=== PATIENT | female | born 1955 | race African-American/Black ===

== ENCOUNTER → 2016-08-21 | Outpatient (CLI) | payer OTHER, MEDICAID ==
[~2016-08-21] MED LIST: ALPR0.5T96 PO; ASPI-1159 PO; ATEN50TA PO; CYCL10TA7; DIPH25CA83 PO; FURO-151 PO; GABA-531 PO; GLIP1TAB5; LOSA50TA20 PO; OMEG1CAP17 PO; SIMV10TA6 PO; ZOLP10TA2 PO
[2016-08-21 12:07] LABS: BASOPHILS % 0.8 % (0.0-2.0); EOSINOPHILS % 8.2 % (0.0-5.0); HEMATOCRIT. 37.1 % (36.0-48.0); HEMOGLOBIN. 12.5 g/dL (12.0-16.0); LYMPHOCYTES % 24.5 % (20.0-50.0); MEAN CORPUSCULAR HEMOGLOBIN 28.4 pg (28.0-32.0); MEAN CORPUSCULAR VOLUME 84.7 fL (81.0-99.0); MEAN PLATELET VOLUME 9.5 fl (7.4-10.4); MONOCYTES % 7.6 % (2.0-8.0); NEUTROPHILS % 58.9 % (40.0-76.0); PLATELET 175 x1000/uL (130-400); RED BLOOD CELL COUNT 4.38 mill/uL (4.2-5.4); RED CELL DISTRIBUTION WIDTH 12.9 % (11.6-14.6)
[2016-08-21 12:18] LABS: INR 1.3; PROTHROMBIN TIME 13.2 sec
[2016-08-21 12:27] LABS: CARBON DIOXIDE 29 mEq/L (21-32); CHLORIDE 101 mEq/L (98-107); HAPTOGLOBIN 341 mg/dL (30-200); TOTAL IRON BINDING CAPACITY 234 ug/dL (250-450)
[2016-08-21 12:37] LABS: FERRITIN 237 ng/mL (10-291)
[2016-08-21 12:49] LABS: HEPATITIS B SURFACE ANTIGEN NEGATIVE
[2016-08-21 13:16] LABS: HEPATITIS B CORE AB IGM NEGATIVE
[2016-08-21 13:18] LABS: HEPATITIS A AB IGM NEGATIVE (NEGATIVE)
[2016-08-22 09:06] LABS: IMMUNOGLOBULIN A 384 mg/dL (87-352); IMMUNOGLOBULIN G 1485 mg/dL (700-1600); IMMUNOGLOBULIN M 469 mg/dL (26-217)
[2016-08-22 10:06] LABS: BETA-2 MICROGLOBULIN SERUM 1.8 mg/L (0.6-2.4)
[2016-08-22 13:07] LABS: CA 27.29 236.4 U/mL (0.0-38.6)
[2016-08-22 16:21] LABS: FOLIC ACID (FOLATE) SERUM > 20.00 ng/mL (>5.38); VITAMIN B12 SERUM 1700 pg/mL (211-911)
[2016-08-23 06:21] LABS: CA 19-9 57970 U/mL (0-35); CANCER ANTIGEN 125 444.7 U/mL (0.0-38.1)
== END | disposition home or self-care (01) ==
LOC: LAB 11:22
PROVIDERS: ATTEND Internal Medicine Hematology & Oncology
DX: R16.0 Hepatomegaly, not elsewhere classified (principal); K86.89 Other specified diseases of pancreas; R79.89 Other specified abnormal findings of blood chemistry
CPT/HCPCS: 36415; 80053; 82232; 82270; 82378; 82607; 82728; 82746; 82784; 83010; 83540; 83550; 83615; 84439; 84443; 84481; 85025; 85044; 85610; 85730; 86300; 86301; 86304; 86705; 86709; 86803; 87186; 87340

== ENCOUNTER 2016-11-15 13:50 | Inpatient (IN) | payer OTHER, MEDICAID ==
[~2016-11-15] VITALS: Ht 154.9 cm; Wt 63.5 kg
[~2016-11-15 13:50] MED LIST changes: +ALPR1TAB2 PO; +ATEN-42 PO; +METF500T4 PO; +POTA10CA42 PO
[2016-11-15] MEDS ORDERED: SODIUM CHLORIDE 0.9% 1,000 ML IV ONE (14:17)
[2016-11-15] MEDS ORDERED: ONDANSETRON HCL 4MG/2ML VIAL IV ONE (14:45)
[2016-11-15 15:12] LABS: BASOPHILS % 0.3 % (0.0-2.0); EOSINOPHILS % 0.3 % (0.0-5.0); HEMATOCRIT. 23.6 % (36.0-48.0); HEMOGLOBIN. 7.9 g/dL (12.0-16.0); LYMPHOCYTES % 14.8 % (20.0-50.0); MEAN CORPUSCULAR VOLUME 86.2 fL (81.0-99.0); MONOCYTES % 12.1 % (2.0-8.0); NEUTROPHILS % 72.5 % (40.0-76.0); PLATELET 165 x1000/uL (130-400); RED BLOOD CELL COUNT 2.73 mill/uL (4.2-5.4); RED CELL DISTRIBUTION WIDTH 17.7 % (11.6-14.6)
[2016-11-15 15:17] LABS: CARBON DIOXIDE 25 mEq/L (21-32); CHLORIDE 102 mEq/L (98-107); INR 1.3; PARTIAL THROMBOPLASTIN TIME 37.7 sec (24.0-34.0); PROTHROMBIN TIME 13.9 sec
[2016-11-15 15:25] LABS: TROPONIN I < 0.02 ng/mL (0.00-0.04)
[2016-11-15 23:05] VITALS: BP 97/60
[2016-11-15] MEDS ORDERED: ZOLP10TA2 PO (23:44)
[2016-11-15] MEDS ORDERED: LOV40 SQ (23:44)
[2016-11-15] MEDS ORDERED: OMEG1CAP17 PO (23:44)
[2016-11-15] MEDS ORDERED: LOSA50TA20 PO (23:44)
[2016-11-15] MEDS ORDERED: GLIP2.5T3 PO (23:44)
[2016-11-15] MEDS ORDERED: ASPI-1159 PO (23:44)
[2016-11-16] VITALS (15 sets, daily range): BP systolic 86–155; BP diastolic 50–98
[2016-11-16] MEDS ORDERED: ONDANSETRON HCL 4MG/2ML VIAL IV PRN (00:45)
[2016-11-16] MEDS ORDERED: ZOLPIDEM TARTRATE 5MG TABLET PO PRN (00:45)
[2016-11-16] MEDS: SODIUM CHLORIDE 0.45% 1,000 ML IV SCH ×2 (01:06→16:01)
[2016-11-16] MEDS: BLOOD SUGAR DIAGNOSTIC STRIP TEST SCH ×4 (06:00→20:43)
[2016-11-16 06:45] LABS: CARBON DIOXIDE 23 mEq/L (21-32); CHLORIDE 107 mEq/L (98-107)
[2016-11-16 07:07] LABS: HEMATOCRIT. 22.8 % (36.0-48.0); HEMOGLOBIN. 7.6 g/dL (12.0-16.0); MEAN CORPUSCULAR HEMOGLOBIN 28.7 pg (28.0-32.0); MEAN CORPUSCULAR VOLUME 86.1 fL (81.0-99.0); MEAN PLATELET VOLUME 8.9 fl (7.4-10.4); PLATELET 183 x1000/uL (130-400); RED BLOOD CELL COUNT 2.65 mill/uL (4.2-5.4)
[2016-11-16] MEDS: INSULIN LISPRO 100 UNITS/ML SUBCUT SCH ×4 (07:44→20:43)
[2016-11-16] MEDS: ATENOLOL 50 MG TABLET PO SCH (08:20)
[2016-11-16] MEDS: PANTOPRAZOLE SODIUM 40 MG/VIAL IV SCH (08:44)
[2016-11-16] MEDS: FISH OIL/OMEGA-3 FATTY ACIDS 1000MG CAPSULE PO SCH (08:44)
[2016-11-16] MEDS: ALPRAZOLAM 0.25 MG TABLET PO PRN (08:47)
[2016-11-16] MEDS ORDERED: ENOXAPARIN 40MG/0.4ML SYR SUBCUT SCH (09:00)
[2016-11-16] MEDS ORDERED: ENOXAPARIN 30MG/0.3ML SYR SUBCUT SCH (09:00)
[2016-11-16] MEDS ORDERED: ASPIRIN 81MG EC TABLET PO SCH (09:00)
[2016-11-16] MEDS ORDERED: OMEGA ACID ETHYL ESTERS PO SCH (09:00)
[2016-11-16 13:30] LABS: PLATELET ESTIMATE NORMAL
[2016-11-16 18:45] LABS: VITAMIN B12 SERUM > 2000 pg/mL (211-911)
[2016-11-16 18:48] LABS: FERRITIN 1953 ng/mL (10-291)
[2016-11-17] VITALS (8 sets, daily range): BP systolic 95–165; BP diastolic 66–112
[2016-11-17] MEDS: BLOOD SUGAR DIAGNOSTIC STRIP TEST SCH ×4 (06:38→20:09)
[2016-11-17] MEDS: INSULIN LISPRO 100 UNITS/ML SUBCUT SCH ×4 (08:10→20:09)
[2016-11-17] MEDS: FISH OIL/OMEGA-3 FATTY ACIDS 1000MG CAPSULE PO SCH (08:53)
[2016-11-17] MEDS: PANTOPRAZOLE SODIUM 40 MG/VIAL IV SCH (08:53)
[2016-11-17] MEDS: ATENOLOL 50 MG TABLET PO SCH ×2 (09:00→14:59)
[2016-11-17] MEDS: ACETAMINOPHEN 325MG TABLET PO PRN ×2 (09:02→19:33)
[2016-11-17 10:16] LABS: HEMOGLOBIN. 10.2 g/dL (12.0-16.0); MEAN CORPUSCULAR HEMOGLOBIN 29.4 pg (28.0-32.0); MEAN CORPUSCULAR VOLUME 86.6 fL (81.0-99.0); MEAN PLATELET VOLUME 8.8 fl (7.4-10.4); PLATELET 225 x1000/uL (130-400); RED BLOOD CELL COUNT 3.47 mill/uL (4.2-5.4); RED CELL DISTRIBUTION WIDTH 17.9 % (11.6-14.6)
[2016-11-17 10:32] LABS: CARBON DIOXIDE 24 mEq/L (21-32); CHLORIDE 109 mEq/L (98-107)
[2016-11-17 11:09] LABS: NUCLEATED RED BLOOD CELLS 1 /100 WBC; PLATELET ESTIMATE NORMAL
[2016-11-17] MEDS: SODIUM CHLORIDE 0.45% 1,000 ML IV SCH (15:00)
[2016-11-17] MEDS ORDERED: POTASSIUM CHLORIDE 20MEQ TABLET SR PO NR (19:39)
[2016-11-17] MEDS ORDERED: VANCOMYCIN 1500MG in DEXTROSE 5% WATER 250ML IV NR (22:00)
[2016-11-18] VITALS (8 sets, daily range): BP systolic 84–111; BP diastolic 45–78
[2016-11-18] MEDS: PIPERACILLIN/TAZ 3.375G PREMIX 50 ML IV SCH ×5 (00:19→23:19)
[2016-11-18] MEDS: MORPHINE SULFATE 4 MG/ML CPJ (NOT FOR IM USE) IV PRN (05:16)
[2016-11-18] MEDS ORDERED: MORPHINE SULFATE 4 MG/ML CPJ (NOT FOR IM USE) IV NR (06:30)
[2016-11-18] MEDS: INSULIN LISPRO 100 UNITS/ML SUBCUT SCH ×4 (08:10→21:11)
[2016-11-18] MEDS: BLOOD SUGAR DIAGNOSTIC STRIP TEST SCH ×4 (08:12→20:25)
[2016-11-18] MEDS: ATENOLOL 50 MG TABLET PO SCH (08:59)
[2016-11-18] MEDS: FISH OIL/OMEGA-3 FATTY ACIDS 1000MG CAPSULE PO SCH (08:59)
[2016-11-18] MEDS: SODIUM CHLORIDE 0.45% 1,000 ML IV SCH ×2 (08:59→23:19)
[2016-11-18] MEDS ORDERED: FAMOTIDINE 20MG TABLET PO SCH (09:00)
[2016-11-18] MEDS: VANCOMYCIN 1 G PREMIX 200 ML IV SCH ×2 (10:16→21:11)
[2016-11-18] MEDS: ALPRAZOLAM 0.25 MG TABLET PO PRN (10:40)
[2016-11-18 10:41] LABS: HEMATOCRIT. 35.4 % (36.0-48.0); MEAN CORPUSCULAR HEMOGLOBIN 29.2 pg (28.0-32.0); MEAN CORPUSCULAR VOLUME 86.4 fL (81.0-99.0); MEAN PLATELET VOLUME 8.6 fl (7.4-10.4); PLATELET 272 x1000/uL (130-400); RED CELL DISTRIBUTION WIDTH 18.7 % (11.6-14.6)
[2016-11-18 10:56] LABS: CARBON DIOXIDE 21 mEq/L (21-32); CHLORIDE 111 mEq/L (98-107)
[2016-11-18 11:40] LABS: ATYPICAL LYMPHOCYTES 1; NUCLEATED RED BLOOD CELLS 3 /100 WBC; PLATELET ESTIMATE NORMAL
[2016-11-18 15:56] LABS: HEMATOCRIT. 34.6 % (36.0-48.0); HEMOGLOBIN. 11.6 g/dL (12.0-16.0); MEAN CORPUSCULAR HEMOGLOBIN 29.1 pg (28.0-32.0); MEAN CORPUSCULAR VOLUME 86.8 fL (81.0-99.0); MEAN PLATELET VOLUME 8.4 fl (7.4-10.4); PLATELET 309 x1000/uL (130-400); RED BLOOD CELL COUNT 3.98 mill/uL (4.2-5.4); RED CELL DISTRIBUTION WIDTH 19.4 % (11.6-14.6)
[2016-11-18 16:02] LABS: CHLORIDE 108 mEq/L (98-107)
[2016-11-18 16:03] LABS: INR 1.9; PROTHROMBIN TIME 19.2 sec
[2016-11-18 16:04] LABS: CARBON DIOXIDE 20 mEq/L (21-32)
[2016-11-18] MEDS ORDERED: SODIUM CHLORIDE 0.9% 500 ML IV NR (16:30)
[2016-11-18] MEDS: PANTOPRAZOLE SODIUM 40 MG/VIAL IV SCH (16:40)
[2016-11-18 20:48] LABS: NUCLEATED RED BLOOD CELLS 1 /100 WBC; PLATELET ESTIMATE NORMAL
[2016-11-19] VITALS (7 sets, daily range): BP systolic 84–106; BP diastolic 51–70
[2016-11-19 00:04] LABS: HEMATOCRIT 32.8 % (36.0-48.0); HEMOGLOBIN 10.9 g/dL (12.0-16.0)
[2016-11-19] MEDS: PIPERACILLIN/TAZ 3.375G PREMIX 50 ML IV SCH ×4 (05:09→23:10)
[2016-11-19 05:23] LABS: BASOPHILS % 0.4 % (0.0-2.0); EOSINOPHILS % 1.7 % (0.0-5.0); HEMOGLOBIN. 10.4 g/dL (12.0-16.0); LYMPHOCYTES % 7.9 % (20.0-50.0); MEAN CORPUSCULAR HEMOGLOBIN 28.9 pg (28.0-32.0); MEAN CORPUSCULAR VOLUME 86.7 fL (81.0-99.0); MEAN PLATELET VOLUME 9.1 fl (7.4-10.4); MONOCYTES % 11.7 % (2.0-8.0); NEUTROPHILS % 78.3 % (40.0-76.0); PLATELET 301 x1000/uL (130-400); RED BLOOD CELL COUNT 3.58 mill/uL (4.2-5.4)
[2016-11-19 05:57] LABS: CARBON DIOXIDE 19 mEq/L (21-32); CHLORIDE 108 mEq/L (98-107)
[2016-11-19] MEDS: MORPHINE SULFATE 4 MG/ML CPJ (NOT FOR IM USE) IV PRN (06:27)
[2016-11-19] MEDS: BLOOD SUGAR DIAGNOSTIC STRIP TEST SCH ×4 (07:25→21:28)
[2016-11-19] MEDS: INSULIN LISPRO 100 UNITS/ML SUBCUT SCH ×4 (07:25→21:00)
[2016-11-19] MEDS: ATENOLOL 50 MG TABLET PO SCH (07:43)
[2016-11-19] MEDS: FISH OIL/OMEGA-3 FATTY ACIDS 1000MG CAPSULE PO SCH (08:32)
[2016-11-19] MEDS: PANTOPRAZOLE SODIUM 40 MG/VIAL IV SCH (08:32)
[2016-11-19] MEDS ORDERED: SODIUM CHLORIDE 0.9% 500 ML IV ONE (09:00)
[2016-11-19 09:45] LABS: HEMATOCRIT 29.6 % (36.0-48.0); HEMOGLOBIN 9.8 g/dL (12.0-16.0)
[2016-11-19] MEDS: VANCOMYCIN 1 G PREMIX 200 ML IV SCH ×2 (09:46→21:12)
[2016-11-19] MEDS: ALPRAZOLAM 0.25 MG TABLET PO PRN ×2 (11:39→23:10)
[2016-11-19] MEDS: SODIUM CHLORIDE 0.45% 1,000 ML IV SCH (17:20)
[2016-11-19] MEDS: MIRTAZAPINE 15MG TABLET PO SCH (21:12)
[2016-11-20] VITALS (12 sets, daily range): BP systolic 105–152; BP diastolic 73–110
[2016-11-20] MEDS: PIPERACILLIN/TAZ 3.375G PREMIX 50 ML IV SCH ×3 (05:09→18:32)
[2016-11-20] MEDS: BLOOD SUGAR DIAGNOSTIC STRIP TEST SCH ×4 (07:40→21:35)
[2016-11-20] MEDS: INSULIN LISPRO 100 UNITS/ML SUBCUT SCH ×4 (08:10→21:00)
[2016-11-20] MEDS: ATENOLOL 50 MG TABLET PO SCH (09:00)
[2016-11-20 09:46] LABS: INR 1.6; PROTHROMBIN TIME 16.3 sec
[2016-11-20] MEDS: VANCOMYCIN 1 G PREMIX 200 ML IV SCH (10:01)
[2016-11-20] MEDS ORDERED: DIPHENHYDRAMINE 50MG/ML VIAL ONE (10:06)
[2016-11-20] MEDS ORDERED: FENTANYL CITRATE/PF 50MCG/ML 2ML VIAL ONE (10:06)
[2016-11-20] MEDS ORDERED: LIDOCAINE HCL 1% 20ML VIAL (Pyxis) INJ ONE (10:06)
[2016-11-20] MEDS ORDERED: MIDAZOLAM HCL 2 MG/2 ML VIAL ONE (10:06)
[2016-11-20] MEDS ORDERED: SODIUM BICARBONATE 4% (2.4MEQ) 5ML VIAL IV ONE (10:07)
[2016-11-20] MEDS ORDERED: IOHEXOL-300 50 ML BOTTLE IV ONE (10:23)
[2016-11-20] MEDS ORDERED: FENTANYL CITRATE/PF 50MCG/ML 2ML VIAL IV ONE (11:00)
[2016-11-20] MEDS ORDERED: DIPHENHYDRAMINE 50MG/ML VIAL IV ONE (11:00)
[2016-11-20] MEDS ORDERED: SODIUM CHLORIDE 0.9% 10ML VIAL ONE (13:19)
[2016-11-20] MEDS: PANTOPRAZOLE SODIUM 40 MG/VIAL IV SCH (13:21)
[2016-11-20] MEDS: MORPHINE SULFATE 4 MG/ML CPJ (NOT FOR IM USE) IV PRN (13:21)
[2016-11-20] MEDS: FISH OIL/OMEGA-3 FATTY ACIDS 1000MG CAPSULE PO SCH (13:22)
[2016-11-20] MEDS: SODIUM CHLORIDE 0.45% 1,000 ML IV SCH (13:48)
[2016-11-20] MEDS: DEXTROSE 50% WATER 50ML SYRINGE IV PRN (17:33)
[2016-11-20] MEDS: MIRTAZAPINE 15MG TABLET PO SCH (21:34)
[2016-11-21] VITALS (7 sets, daily range): BP systolic 105–135; BP diastolic 65–98
[2016-11-21] MEDS: PIPERACILLIN/TAZ 3.375G PREMIX 50 ML IV SCH ×5 (00:08→23:29)
[2016-11-21] MEDS: SODIUM CHLORIDE 0.45% 1,000 ML IV SCH ×3 (01:00→18:00)
[2016-11-21 05:22] LABS: BASOPHILS % 0.5 % (0.0-2.0); EOSINOPHILS % 2.7 % (0.0-5.0); HEMATOCRIT. 25.8 % (36.0-48.0); HEMOGLOBIN. 8.5 g/dL (12.0-16.0); LYMPHOCYTES % 11.5 % (20.0-50.0); MEAN CORPUSCULAR HEMOGLOBIN 28.8 pg (28.0-32.0); MEAN CORPUSCULAR VOLUME 87.6 fL (81.0-99.0); MEAN PLATELET VOLUME 8.7 fl (7.4-10.4); MONOCYTES % 11.9 % (2.0-8.0); NEUTROPHILS % 73.4 % (40.0-76.0); PLATELET 286 x1000/uL (130-400); RED BLOOD CELL COUNT 2.94 mill/uL (4.2-5.4); RED CELL DISTRIBUTION WIDTH 19.6 % (11.6-14.6)
[2016-11-21 05:42] LABS: CARBON DIOXIDE 23 mEq/L (21-32); CHLORIDE 112 mEq/L (98-107)
[2016-11-21] MEDS ORDERED: POTASSIUM CHLORIDE 20MEQ TABLET SR PO SCH (06:30)
[2016-11-21] MEDS: BLOOD SUGAR DIAGNOSTIC STRIP TEST SCH ×4 (06:45→20:23)
[2016-11-21] MEDS: PANTOPRAZOLE SODIUM 40 MG/VIAL IV SCH (08:01)
[2016-11-21] MEDS: FISH OIL/OMEGA-3 FATTY ACIDS 1000MG CAPSULE PO SCH (08:01)
[2016-11-21] MEDS: ATENOLOL 50 MG TABLET PO SCH (08:02)
[2016-11-21] MEDS: INSULIN LISPRO 100 UNITS/ML SUBCUT SCH ×4 (08:08→20:23)
[2016-11-21] MEDS: MIRTAZAPINE 15MG TABLET PO SCH (20:25)
[2016-11-22] MEDS: MORPHINE SULFATE 4 MG/ML CPJ (NOT FOR IM USE) IV PRN ×3 (00:33→19:45)
[2016-11-22 02:07] VITALS: BP 118/88
[2016-11-22 03:29] LABS: EOSINOPHILS % 2.4 % (0.0-5.0); HEMATOCRIT. 32.7 % (36.0-48.0); LYMPHOCYTES % 14.1 % (20.0-50.0); MEAN CORPUSCULAR HEMOGLOBIN 29.4 pg (28.0-32.0); MEAN CORPUSCULAR VOLUME 87.5 fL (81.0-99.0); MEAN PLATELET VOLUME 8.7 fl (7.4-10.4); MONOCYTES % 14.7 % (2.0-8.0); NEUTROPHILS % 67.8 % (40.0-76.0); PLATELET 287 x1000/uL (130-400); RED BLOOD CELL COUNT 3.74 mill/uL (4.2-5.4); RED CELL DISTRIBUTION WIDTH 18.6 % (11.6-14.6)
[2016-11-22] MEDS: PIPERACILLIN/TAZ 3.375G PREMIX 50 ML IV SCH ×4 (05:19→23:32)
[2016-11-22] MEDS: SODIUM CHLORIDE 0.45% 1,000 ML IV SCH ×3 (05:20→23:31)
[2016-11-22] MEDS: BLOOD SUGAR DIAGNOSTIC STRIP TEST SCH ×4 (06:49→20:59)
[2016-11-22 08:00] VITALS: BP 132/96
[2016-11-22] MEDS: INSULIN LISPRO 100 UNITS/ML SUBCUT SCH ×4 (08:10→20:59)
[2016-11-22] MEDS: PANTOPRAZOLE SODIUM 40 MG/VIAL IV SCH (09:16)
[2016-11-22] MEDS: FISH OIL/OMEGA-3 FATTY ACIDS 1000MG CAPSULE PO SCH (09:21)
[2016-11-22] MEDS: ATENOLOL 50 MG TABLET PO SCH (09:21)
[2016-11-22 12:00] VITALS: BP 114/74
[2016-11-22 16:00] VITALS: BP 132/81
[2016-11-22] MEDS ORDERED: FENTANYL CITRATE/PF 50MCG/ML 2ML VIAL ONE (16:14)
[2016-11-22] MEDS ORDERED: MIDAZOLAM HCL 5 MG/5 ML VIAL ONE (16:15)
[2016-11-22] MEDS ORDERED: SIMETHICONE 40 MG/0.6 ML 30ML ONE (16:15)
[2016-11-22] MEDS ORDERED: MIDAZOLAM HCL 5 MG/5 ML VIAL IV PRN (16:20)
[2016-11-22] MEDS ORDERED: FENTANYL CITRATE/PF 50MCG/ML 2ML VIAL IV PRN (16:20)
[2016-11-22] MEDS: DEXTROSE 50% WATER 50ML SYRINGE IV PRN (18:25)
[2016-11-22 20:00] VITALS: BP 149/107
[2016-11-22] MEDS: MIRTAZAPINE 15MG TABLET PO SCH (20:59)
[2016-11-22] MEDS: TEMAZEPAM 15MG CAPSULE PO PRN (23:36)
[2016-11-23] VITALS (22 sets, daily range): BP systolic 111–177; BP diastolic 66–99
[2016-11-23] MEDS: PIPERACILLIN/TAZ 3.375G PREMIX 50 ML IV SCH ×3 (05:30→17:44)
[2016-11-23] MEDS: ALPRAZOLAM 0.25 MG TABLET PO PRN ×2 (05:58→21:10)
[2016-11-23 07:31] LABS: HEMATOCRIT. 31.6 % (36.0-48.0); HEMOGLOBIN. 10.6 g/dL (12.0-16.0); MEAN CORPUSCULAR HEMOGLOBIN 29.4 pg (28.0-32.0); MEAN CORPUSCULAR VOLUME 87.9 fL (81.0-99.0); MEAN PLATELET VOLUME 9.1 fl (7.4-10.4); PLATELET 309 x1000/uL (130-400); RED CELL DISTRIBUTION WIDTH 19.2 % (11.6-14.6)
[2016-11-23 07:35] LABS: CARBON DIOXIDE 25 mEq/L (21-32); CHLORIDE 114 mEq/L (98-107)
[2016-11-23] MEDS: BLOOD SUGAR DIAGNOSTIC STRIP TEST SCH ×4 (07:40→21:11)
[2016-11-23] MEDS: INSULIN LISPRO 100 UNITS/ML SUBCUT SCH ×4 (07:43→21:00)
[2016-11-23] MEDS: ATENOLOL 50 MG TABLET PO SCH (09:00)
[2016-11-23] MEDS: FISH OIL/OMEGA-3 FATTY ACIDS 1000MG CAPSULE PO SCH (09:00)
[2016-11-23] MEDS: DEXTROSE 50% WATER 50ML SYRINGE IV PRN (09:24)
[2016-11-23] MEDS: PANTOPRAZOLE SODIUM 40 MG/VIAL IV SCH (09:24)
[2016-11-23] MEDS ORDERED: POTASSIUM CHLORIDE INJ 50 MEQ in DEXT 5% WATER 500 ML IV SCH (10:00)
[2016-11-23] MEDS ORDERED: IOHEXOL-300 50 ML BOTTLE IV ONE (10:26)
[2016-11-23] MEDS ORDERED: LIDOCAINE HCL 1% 20ML VIAL (Pyxis) INJ ONE (10:26)
[2016-11-23] MEDS ORDERED: SODIUM BICARBONATE 4% (2.4MEQ) 5ML VIAL IV ONE (10:27)
[2016-11-23] MEDS ORDERED: MIDAZOLAM HCL 2 MG/2 ML VIAL ONE (10:52)
[2016-11-23] MEDS ORDERED: FENTANYL CITRATE/PF 50MCG/ML 2ML VIAL ONE ×2 (10:53→14:41)
[2016-11-23] MEDS ORDERED: DIPHENHYDRAMINE 50MG/ML VIAL ONE (10:53)
[2016-11-23] MEDS ORDERED: MIDAZOLAM HCL 5 MG/ML VIAL IV ONE (11:30)
[2016-11-23] MEDS ORDERED: FENTANYL CITRATE/PF 50MCG/ML 2ML VIAL IV ONE (11:30)
[2016-11-23] MEDS ORDERED: DIPHENHYDRAMINE 50MG/ML VIAL IV NR (11:30)
[2016-11-23] MEDS ORDERED: FENTANYL CITRATE/PF 50MCG/ML 2ML VIAL IV NR (12:00)
[2016-11-23] MEDS ORDERED: MIDAZOLAM HCL 2 MG/2 ML VIAL IV ONE (12:00)
[2016-11-23 13:09] LABS: PLATELET ESTIMATE NORMAL
[2016-11-23] MEDS ORDERED: DEXT 5%/0.45% NACL KCL 20MEQ/L 1,000 ML IV SCH (14:30)
[2016-11-23] MEDS ORDERED: CEFAZOLIN 1000MG PREMIX 0 ML IV ONE (14:40)
[2016-11-23] MEDS: TEMAZEPAM 15MG CAPSULE PO PRN (21:10)
[2016-11-23] MEDS: MIRTAZAPINE 15MG TABLET PO SCH (21:11)
[2016-11-24] VITALS (7 sets, daily range): BP systolic 119–166; BP diastolic 75–94
[2016-11-24] MEDS: PIPERACILLIN/TAZ 3.375G PREMIX 50 ML IV SCH ×3 (00:23→12:43)
[2016-11-24] MEDS: INSULIN LISPRO 100 UNITS/ML SUBCUT SCH (08:10)
[2016-11-24] MEDS: ATENOLOL 50 MG TABLET PO SCH (09:42)
[2016-11-24] MEDS: PANTOPRAZOLE SODIUM 40 MG/VIAL IV SCH (09:42)
[2016-11-24] MEDS: FISH OIL/OMEGA-3 FATTY ACIDS 1000MG CAPSULE PO SCH (09:42)
[2016-11-24] MEDS ORDERED: HYDROCODONE/ACETAMINOPHEN 5/325MG TABLET PO NR (11:00)
[2016-11-24] MEDS ORDERED: HYDROCODONE/ACETAMINOPHEN 5/325MG TABLET PO PRN (11:30)
[2016-11-24] MEDS ORDERED: IOHEXOL-300 50 ML BOTTLE IV ONE (11:46)
[2016-11-24 12:07] LABS: CARBON DIOXIDE 26 mEq/L (21-32); CHLORIDE 111 mEq/L (98-107)
== END 2016-11-24 20:25 | DRG 853 ==
LOC: ER 13:57 → MERGE 18:49 → INTOOBSV 18:49 → 7WST 18:49 → OBSVTOIN 18:49 → EDBEDREQ 18:54 → EDBEDREQSVC 18:54 → ENRESERV 20:05 → EDBEDREQ 22:25
PROVIDERS: ADMIT Internal Medicine; ATTEND Internal Medicine
PROC: 30233N1 Transfusion of Nonautologous Red Blood Cells into Peripheral Vein, Percutaneous Approach (ICD-10-PCS; 2016-11-16)
PROC: 02HV33Z Insertion of Infusion Device into Superior Vena Cava, Percutaneous Approach (ICD-10-PCS; principal; 2016-11-20)
PROC: B5181ZA Fluoroscopy of Superior Vena Cava using Low Osmolar Contrast, Guidance (ICD-10-PCS; 2016-11-20)
PROC: B548ZZA Ultrasonography of Superior Vena Cava, Guidance (ICD-10-PCS; 2016-11-20)
PROC: 0DJ68ZZ Inspection of Stomach, Via Natural or Artificial Opening Endoscopic (ICD-10-PCS; 2016-11-22)
PROC: 0F793DZ Dilation of Common Bile Duct with Intraluminal Device, Percutaneous Approach (ICD-10-PCS; 2016-11-23)
PROC: 0FPB3DZ Removal of Intraluminal Device from Hepatobiliary Duct, Percutaneous Approach (ICD-10-PCS; 2016-11-24)
DX: A41.9 Sepsis, unspecified organism (principal); K83.1 Obstruction of bile duct; C25.9 Malignant neoplasm of pancreas, unspecified; E46 Unspecified protein-calorie malnutrition; C78.7 Secondary malignant neoplasm of liver and intrahepatic bile duct; K31.5 Obstruction of duodenum; K92.2 Gastrointestinal hemorrhage, unspecified; N39.0 Urinary tract infection, site not specified; B96.20 Unspecified Escherichia coli [E. coli] as the cause of diseases classified elsewhere; D63.8 Anemia in other chronic diseases classified elsewhere; E11.9 Type 2 diabetes mellitus without complications; E61.1 Iron deficiency; E86.0 Dehydration; H53.2 Diplopia; I10 Essential (primary) hypertension; T45.1X5A Adverse effect of antineoplastic and immunosuppressive drugs, initial encounter; Z85.07 Personal history of malignant neoplasm of pancreas; Z68.26 Body mass index [BMI] 26.0-26.9, adult; Z88.6 Allergy status to analgesic agent; Z79.899 Other long term (current) drug therapy
CPT/HCPCS: 36415; 36569; 47536; 47537; 70450; 70551; 71010; 74000; 76937; 77001; 78582; 80048; 80053; 80202; 82270; 82378; 82607; 82728; 82746; 82962; 83540; 83550; 83605; 83690; 83735; 83880; 84443; 84484; 85014; 85018; 85025; 85044; 85610; 85730; 86301; 86850; 86870; 86880; 86900; 86920; 87040; 87077; 87086; 87186; 93005; 93306; 96361; 96374; 97110; 97116; 97163; 99285; A4216; A9558; C1725; C1729; C1769; C9113; J0690; J1200; J1815; J2250; J2270; J2405; J2543; J3010; J3370; J3480; J3490; J7030; J7040; J7050; J7060; P9016; Q9967

== ENCOUNTER 2017-03-25 09:18 | Inpatient (IN) | payer OTHER, MEDICAID ==
[~2017-03-25] VITALS: Ht 154.9 cm; Wt 63.5 kg
[~2017-03-25 09:18] MED LIST changes: +ALPR0.5T PO; -ALPR0.5T96 PO; -ATEN50TA PO; +GLIP2.5T3 PO; +LOV40 SQ
[2017-03-25] MEDS ORDERED: ONDANSETRON HCL 4MG/2ML VIAL IV STA (10:19)
[2017-03-25] MEDS ORDERED: MORPHINE SULFATE 4 MG/ML CPJ (NOT FOR IM USE) IV STA (10:19)
[2017-03-25 10:43] LABS: BASOPHILS % 0.8 % (0.0-2.0); EOSINOPHILS % 1.5 % (0.0-5.0); HEMATOCRIT. 28.5 % (36.0-48.0); HEMOGLOBIN. 9.5 g/dL (12.0-16.0); LYMPHOCYTES % 20.7 % (20.0-50.0); MEAN CORPUSCULAR HEMOGLOBIN 31.2 pg (28.0-32.0); MEAN CORPUSCULAR VOLUME 93.8 fL (81.0-99.0); MEAN PLATELET VOLUME 8.3 fl (7.4-10.4); MONOCYTES % 1.3 % (2.0-8.0); NEUTROPHILS % 75.7 % (40.0-76.0); PLATELET 147 x1000/uL (130-400); RED BLOOD CELL COUNT 3.04 mill/uL (4.2-5.4); RED CELL DISTRIBUTION WIDTH 18.5 % (11.6-14.6)
[2017-03-25 10:49] LABS: CHLORIDE 108 mEq/L (98-107)
[2017-03-25 10:58] LABS: CARBON DIOXIDE 25 mEq/L (21-32)
[2017-03-25 11:05] LABS: D-DIMER 1.98 mg/L FEU (<0.50); INR 1.6; PROTHROMBIN TIME 16.9 sec (9.4-11.6)
[2017-03-25] MEDS ORDERED: MORPHINE SULFATE 4 MG/ML CPJ (NOT FOR IM USE) IV ONE (12:00)
[2017-03-25] MEDS ORDERED: VANCOMYCIN 1 G PREMIX 200 ML IV SCH ×2 (13:30→22:00)
[2017-03-25 21:00] VITALS: BP 158/87
[2017-03-25 22:00] VITALS: BP 158/87
[2017-03-25] MEDS ORDERED: ALPRAZOLAM 0.5 MG TABLET PO PRN (22:00)
[2017-03-25] MEDS ORDERED: ONDANSETRON HCL 4MG/2ML VIAL IV PRN (22:00)
[2017-03-25] MEDS ORDERED: DEXTROSE 50% WATER 50ML SYRINGE IV PRN (22:00)
[2017-03-25] MEDS ORDERED: ACETAMINOPHEN 325MG TABLET PO PRN (22:00)
[2017-03-25] MEDS: HYDROCODONE/ACETAMINOPHEN 10/325MG TABLET PO PRN (23:15)
[2017-03-25] MEDS: GABAPENTIN 300MG CAPSULE PO SCH (23:15)
[2017-03-25] MEDS: CLONIDINE 0.1MG TABLET PO PRN (23:15)
[2017-03-26] VITALS: BP 133/74
[2017-03-26] MEDS: VANCOMYCIN 750 MG PREMIX 150 ML IV SCH ×2 (01:26→11:42)
[2017-03-26] MEDS: GABAPENTIN 300MG CAPSULE PO SCH ×2 (05:20→16:14)
[2017-03-26] MEDS: ENOXAPARIN 60MG/0.6ML SYR SUBCUT SCH ×2 (05:20→16:25)
[2017-03-26] MEDS: SODIUM CHLORIDE 0.9% INJ 3ML FLUSH IVF SCH ×2 (05:21→16:18)
[2017-03-26] MEDS: HYDROCODONE/ACETAMINOPHEN 10/325MG TABLET PO PRN (07:10)
[2017-03-26] MEDS: BLOOD SUGAR DIAGNOSTIC STRIP TEST SCH ×3 (07:11→17:54)
[2017-03-26] MEDS: INSULIN LISPRO 100 UNITS/ML SUBCUT SCH ×3 (07:50→17:50)
[2017-03-26 08:00] VITALS: BP 130/81
[2017-03-26] MEDS ORDERED: HYDR25TA PO (08:26)
[2017-03-26] MEDS ORDERED: WARF2TAB55 PO (08:26)
[2017-03-26] MEDS ORDERED: WARF5TAB73 PO (08:26)
[2017-03-26] MEDS ORDERED: LOSARTAN POTASSIUM 50 MG TABLET PO SCH (09:00)
[2017-03-26] MEDS ORDERED: GLIPIZIDE XL 2.5MG TABLET PO SCH (09:00)
[2017-03-26] MEDS ORDERED: ATENOLOL 25MG TABLET PO SCH (09:00)
[2017-03-26] MEDS: METFORMIN HCL 500MG TABLET PO SCH ×2 (09:28→17:50)
[2017-03-26 12:00] VITALS: BP 129/74
[2017-03-26 16:00] VITALS: BP 178/86
[2017-03-26] MEDS: CLONIDINE 0.1MG TABLET PO PRN (17:53)
[2017-03-26 17:55] VITALS: BP 158/91
== END 2017-03-26 18:31 | disposition home or self-care (01) | DRG 602 ==
LOC: ER 10:09 → 6EST 13:59 → ENRESERV 18:09 → ER 20:45
PROVIDERS: ADMIT Internal Medicine; ATTEND Internal Medicine
DX: L03.115 Cellulitis of right lower limb (principal); E43 Unspecified severe protein-calorie malnutrition; C25.9 Malignant neoplasm of pancreas, unspecified; L03.116 Cellulitis of left lower limb; E11.9 Type 2 diabetes mellitus without complications; I10 Essential (primary) hypertension; F41.9 Anxiety disorder, unspecified; Z82.49 Family history of ischemic heart disease and other diseases of the circulatory system; Z86.718 Personal history of other venous thrombosis and embolism; Z88.6 Allergy status to analgesic agent; Z91.040 Latex allergy status; Z79.82 Long term (current) use of aspirin; Z79.84 Long term (current) use of oral hypoglycemic drugs; Z79.899 Other long term (current) drug therapy; Z79.01 Long term (current) use of anticoagulants; Z86.011 Personal history of benign neoplasm of the brain; Z51.11 Encounter for antineoplastic chemotherapy; Z68.26 Body mass index [BMI] 26.0-26.9, adult
CPT/HCPCS: 36415; 71010; 80053; 82962; 83605; 85025; 85379; 85610; 85730; 87040; 93005; 93971; 96365; 96375; 96376; 99285; J1650; J2270; J2405; J3370; J7030

== ENCOUNTER → 2017-04-26 | Outpatient (CLI) | payer OTHER, MEDICAID ==
[~2017-04-26] MED LIST changes: +HYDR25TA PO; +IOHEXOL-300 100 ML BOTTLE ONE; +WARF2TAB55 PO; +WARF5TAB73 PO
== END | disposition home or self-care (01) ==
LOC: CT 09:32
PROVIDERS: ATTEND Internal Medicine Hematology & Oncology
DX: C25.7 Malignant neoplasm of other parts of pancreas (principal); Z45.2 Encounter for adjustment and management of vascular access device; Z98.890 Other specified postprocedural states
CPT/HCPCS: 36569; 71260; 74177; 76937; 77001; C1725; C1751; Q9967